=== PATIENT | male | born 1965 | race Caucasian/White ===

== ENCOUNTER 2018-07-01 03:51 | Emergency (ER) | payer OTHER ==
--- NOTE | 2018-07-01 09:12 | ULT ---
PRELIMINARY REPORT/[facility]/EMERGENTY AFTER-HOURS PROCEDURE US Duplex Right Lower Extremity Veins, Limited EXAM DATE/TIME: 07/01/2018 4:12 AM CLINICAL HISTORY: 53 years old, male; Pain; Leg, lower; Right; Patient HX: RT posterior calf pain x 2 days; Additional info: HX dvt TECHNIQUE: Real-time Duplex ultrasound of the Right Lower Extremity with 2-D patterson scale, color Doppler flow and spectral waveform analysis. Limited exam was focused on the right lower extremity veins. COMPARISON: No relevant prior studies available. FINDINGS: Right deep veins: Unremarkable. The common femoral, femoral, popliteal and visualized calf veins are patent without thrombus. Normal Doppler waveforms. Normal compressibility and/or augmentation respons e. Right superficial veins: Right calf superficial venous thrombosis. Saphenofemoral junction is patent. Soft tissues: No popliteal cyst. IMPRESSION: Right calf superficial venous thrombosis. No evidence of deep vein thrombosis. Thank you for allowing us to participate in the care of your patient. Dictated and Authenticated by: Corey Mccabe MD 07/01/2018 5:04 AM Central Time ([place] & [place]) FINAL REPORT RIGHT LOWER EXTREMITY VENOUS DOPPLER ULTRASOUND: Date: 07-01-18 Comparison: None. History: Pain, history of DVT. FINDINGS: I agree with the preliminary [facility] report dictated by Dr. Mccabe. Venous structures of the right lower extremity are assessed with color flow and spectral analysis. Right common femoral vein, greater saph enous vein, profunda femoral vein, femoral vein, and popliteal vein are patent with normal blood flow , augmentation and compression. The right posterior tibial vein is noncompressible proximally and contains hypoechoic thrombus. The r ight lesser saphenous vein in the upper calf in the area of patient pain is occluded and contains hyp oechoic clot as well. IMPRESSION: Posterior tibial vein and lesser saphenous vein superficial venous thrombus. No evidence for deep leah ous thrombosis of the right lower extremity. Code QA POS: [facility]
== END 2018-07-01 05:34 | disposition home or self-care (01) ==
LOC: ERS 03:51
DX: I82.811 Embolism and thrombosis of superficial veins of right lower extremity (principal); K21.9 Gastro-esophageal reflux disease without esophagitis; F41.9 Anxiety disorder, unspecified; F32.9 Major depressive disorder, single episode, unspecified; Z79.899 Other long term (current) drug therapy

== ENCOUNTER 2019-10-17 20:56 | Emergency (ER) | payer OTHER ==
--- NOTE | 2019-10-18 09:30 | ULT ---
RIGHT LOWER EXTREMITY VENOUS DOPPLER ULTRASOUND: DATE: 10/17/2019. HISTORY: Swelling, edema, assess for DVT. TECHNIQUE: Multiplanar, patterson scale, sonographic imaging of the venous structures of the right lower extremity ob tained with color flow and spectral analysis. FINDINGS: Right common femoral vein, greater saphenous vein, profunda femoral vein, femoral vein, and popliteal vein are patent with no evidence for DVT within the right lower extremity. There is a thrombosed superficial vessel within the subcutaneous fat of the proximal posterior calf i n the area of clinical concern/pain consistent with a focal area of superficial venous thrombus. The posterior tibial and anterior tibial veins appear patent. IMPRESSION: No evidence for deep vein thrombosis within the right lower extremity. Superficial venous clot noted in the posterior calf in the area of pain. POS: [facility]
== END 2019-10-18 00:06 | disposition home or self-care (01) ==
LOC: ERS 20:56
DX: I82.811 Embolism and thrombosis of superficial veins of right lower extremity (principal); K21.9 Gastro-esophageal reflux disease without esophagitis; F41.9 Anxiety disorder, unspecified; F32.9 Major depressive disorder, single episode, unspecified; F17.220 Nicotine dependence, chewing tobacco, uncomplicated; Z79.899 Other long term (current) drug therapy

== ENCOUNTER 2019-12-09 15:53 | Outpatient (CLI) | payer OTHER ==
--- NOTE | 2019-12-09 16:38 | ULT ---
Left lower extremity venous Doppler ultrasound: 12/09/2019 HISTORY: DVT, superficial thrombophlebitis, calf pain TECHNIQUE: Multiplanar grayscale sonographic imaging of the venous structures of the left lower extre mity obtained with Doppler interrogation including color flow and spectral analysis. FINDINGS: The left common femoral vein, greater saphenous vein, profunda femoral vein, femoral vein, and popliteal vein are patent. Normal blood flow, augmentation, and compression within the deep venous system. No evidence for DVT. The left posterior tibial vein is patent. In the area of palpable concern, within the medial left "guthrie" there is a superficial noncompressible vein with no internal blood flow consistent with superficial venous thrombosis. IMPRESSION: Superficial venous thrombosis as above. No evidence for deep venous thrombosis of the lef t lower extremity.
== END 2019-12-09 15:54 | disposition home or self-care (01) ==
LOC: SCSULT 15:53
PROVIDERS: ATTEND Internal Medicine Hematology & Oncology
DX: M79.605 Pain in left leg (principal); R60.0 Localized edema; I82.812 Embolism and thrombosis of superficial veins of left lower extremity